=== PATIENT | male | born 1960 | race Caucasian/White ===

== ENCOUNTER 2023-07-21 10:22 | Emergency (ER) | payer BC ==
[2023-07-21] MEDS ORDERED: HYDROCODONE/APAP 5/325 MG TAB ONE (10:59)
[2023-07-21] MEDS ORDERED: DIAZEPAM 5 MG TABLET ONE (10:59)
--- NOTE | 2023-07-21 12:21 | RAD REPORT ---
EXAM DESCRIPTION: RAD - Hip Left 2 View - 07/21/2023 12:12 pm CLINICAL HISTORY: Left hip pain status post injury FINDINGS: No fracture or dislocation is seen. Mild osteoarthritis left hip 3 centimeter exostosis left iliac crest. Follow-up x-ray in 3 months recommended for re-evaluation
--- NOTE | 2023-07-21 12:33 | ER ---
Nurse's Notes [facility] Name: Sukumar Ross Age: 62 yrs Sex: Male : 1960 Arrival Date: 07/21/2023 Time: 10:22 Bed 12 Private MD: Diagnosis: Pain in left hip Presentation: 07/20 10:42 Chief complaint: Patient states: Low back pain for 2 days. No trauma or falls. ll1 Coronavirus screen: Client denies travel out of the [place] in the last 14 days. At this time, the client does not indicate any symptoms associated with coronavirus-19. Ebola Screen: Patient denies travel to an Ebola-affected area in the 21 days before illness onset. Initial Sepsis Screen: Does the patient meet any 2 criteria? No. Patient's initial sepsis screen is negative. Does the patient have a suspected source of infection? No. Patient's initial sepsis screen is negative. Risk Assessment: Do you want to hurt yourself or someone else? Patient reports no desire to harm self or others. Onset of symptoms was July 20, 2023. 10:42 Method Of Arrival: Wheelchair ll1 10:42 Acuity: SARAH 4 ll1 Triage Assessment: 12:43 General: Appears uncomfortable, Behavior is calm, cooperative, appropriate for age. ap3 Pain: Complains of pain in back. Historical: - Allergies: 10:42 PENICILLINS; ll1 10:42 Onion; ll1 - PMHx: 10:42 Hypertensive disorder; Diabetes mellitus; ll1 - PSHx: 10:42 B Hips; hernia repair; ll1 - Immunization history:: Adult Immunizations up to date. - Infectious Disease History:: Denies. - Social history:: Smoking status: Patient denies any tobacco usage or history of. Screenin:43 [facility] ED Fall Risk Assessment (Adult) History of falling in the last 3 months, ap3 including since admission No falls in past 3 months (0 pts) Confusion or Disorientation No (0 pts) Intoxicated or Sedated No (0 pts) Impaired Gait No (0 pts) Mobility Assist Device Used No (0 pt) Altered Elimination No (0 pt) Score/Fall Risk Level 0 - 2 = Low Risk Oriented to surroundings, Maintained a safe environment, Educated pt \T\ family on fall prevention, incl call for assistance when getting out of bed, Assessed \T\ reinforced patient's understanding of fall precautions, Provided non-skid footwear, Hourly rounding (assess needs \T\ fall precautionary measures) done, Used ambulatory aids as needed (educated on \T\ assisted with), Used gait belt as appropriate. Abuse screen: Denies threats or abuse. Nutritional screening: No deficits noted. Tuberculosis screening: No symptoms or risk factors identified. Assessment: 11:02 Reassessment: No changes from previously documented assessment. Patient and/or family ll1 updated on plan of care and expected duration. Pain level reassessed. Patient is alert, oriented x 3, equal unlabored respirations, skin warm/dry/pink. Vital Signs: 10:42 BP 115 / 92; Pulse 103; Resp 17; Temp 97.8; Pulse Ox 97% on R/A; Weight 92.99 kg; ll1 Height 5 ft. 10 in. ; Pain 7/10; 10:42 Body Mass Index 29.41 (92.99 kg, 177.8 cm) ll1 10:42 Pain Scale: Adult ll1 ED Course: 10:29 Patient arrived in ED. rg4 10:31 Edgard Sanford DO is Attending Physician. ms3 10:42 Arm band placed on. ll1 10:43 Triage completed. ll1 12:13 Hip Left 2 View XRAY In Process Unspecified. EDMS 12:43 No provider procedures requiring assistance completed. Patient did not have IV access ap3 during this emergency room visit. 12:44 Patient has correct armband on for positive identification. Placed in gown. Bed in low ap3 position. Call light in reach. Side rails up X 1. Provided Education on: discharge instructions. Administered Medications: 11:01 Drug: HYDROcodone-acetaminophen PO 5 mg-325 mg 1 tabs PO once {Note: pain 7/10 RASS 0.} ll1 Route: PO; 12:44 Follow up: Response: No adverse reaction; Pain is decreased ap3 11:01 Drug: Diazepam PO 5 mg PO once {Note: pain 7/10, RASS 0.} Route: PO; ll1 12:44 Follow up: Response: No adverse reaction; Pain is decreased ap3 Medication: 12:44 VIS not applicable for this client. ap3 Outcome: 12:33 Discharge ordered by . ms3 12:43 Discharged to home ambulatory, ap3 12:43 Condition: good 12:43 Discharge instructions given to patient, Instructed on discharge instructions, follow up and referral plans. medication usage, Demonstrated understanding of instructions, follow-up care, medications, Prescriptions given X 3, 12:44 Patient left the ED. ap3 Signatures: Dispatcher [employer] Farhana Caceres rg4 Echo Vance RN RN ap3 Cornelius Moeller RN RN ll1 Edgard Sanford DO DO ms3
--- NOTE | 2023-07-21 12:34 | EDPHYS ---
Physician Documentation [facility] Name: Sukumar Ross Age: 62 yrs Sex: Male : 1960 Arrival Date: 07/21/2023 Time: 10:22 Bed 12 Private MD: ED Physician Edgard Sanford HPI: 07/20 11:07 This 62 yrs old Male presents to ER via Wheelchair with complaints of Low Back Pain. ms3 11:07 62-year-old male with past medical history of hypertension, diabetes presents to the [facility] emergency department for left buttock pain that radiates down his left leg. Patient states his discomfort is 7/10. Patient states the pain is worse with walking. Patient notes he recently had an upper respiratory infection and he has been sleeping on the couch and in his recliner as do not get his girlfriend sick. Patient states symptoms began after the change in his sleeping arrangement. Historical: - Allergies: 10:42 PENICILLINS; ll1 10:42 Onion; ll1 - PMHx: 10:42 Hypertensive disorder; Diabetes mellitus; ll1 - PSHx: 10:42 B Hips; hernia repair; ll1 - Immunization history:: Adult Immunizations up to date. - Infectious Disease History:: Denies. - Social history:: Smoking status: Patient denies any tobacco usage or history of. ROS: 11:07 Constitutional: Negative for fever, and chills. Neck: Negative for injury, pain, and ms3 swelling, Cardiovascular: Negative for chest pain, and palpitations. Respiratory: Negative for shortness of breath, cough, wheezing, and pleuritic chest pain, Abdomen/GI: Negative for abdominal pain, nausea, vomiting, diarrhea, and constipation, 11:07 Skin: Negative for injury, rash, and discoloration, 11:07 MS/extremity: Positive for Left buttock pain, Exam: 11:07 Constitutional: This is a well developed, well nourished patient who is awake, alert, ms3 and in no acute distress. Neck: Trachea midline, no cervical lymphadenopathy. Supple, full range of motion without nuchal rigidity, or vertebral point tenderness. No Meningismus. Chest/axilla: Normal chest wall appearance and motion. Nontender with no deformity. Cardiovascular: Regular rate and rhythm with a normal S1 and S2. No gallops, murmurs, or rubs. Normal PMI, no JVD. No pulse deficits. Respiratory: Lungs have equal breath sounds bilaterally, clear to auscultation and percussion. No rales, rhonchi or wheezes noted. No increased work of breathing, no retractions or nasal flaring. Abdomen/GI: Soft, non-tender, with normal bowel sounds. No distension or tympany. No guarding or rebound. No evidence of tenderness throughout. Skin: Warm, dry with normal turgor. Normal color with no rashes, no lesions, and no evidence of cellulitis. MS/ Extremity: Pulses equal, no cyanosis. Neurovascular intact. Full, normal range of motion. Vital Signs: 10:42 BP 115 / 92; Pulse 103; Resp 17; Temp 97.8; Pulse Ox 97% on R/A; Weight 92.99 kg; ll1 Height 5 ft. 10 in. ; Pain 7/10; 10:42 Body Mass Index 29.41 (92.99 kg, 177.8 cm) ll1 10:42 Pain Scale: Adult ll1 MDM: 10:37 Patient medically screened. ms3 11:07 Differential diagnosis: strain, Osteoarthritis of left hip versus muscle spasm. ms3 12:35 Data reviewed: vital signs, nurses notes, and as a result, I will discharge patient. I ms3 considered the following discharge prescriptions or medication management in the emergency department Medications were administered in the Emergency Department. See MAR. Independent interpretation of the following test(s) in the Emergency Department X-Ray: My interpretation is Left hip x-ray images reviewed by me do not reveal fracture. Care significantly affected by the following chronic conditions: Diabetes, Hypertension. Counseling: I had a detailed discussion with the patient and/or guardian regarding the historical points, exam findings, and any diagnostic results supporting the discharge/admit diagnosis, radiology results, the need for outpatient follow up, to return to the emergency department if symptoms worsen or persist or if there are any questions or concerns that arise at home. Special discussion: I discussed with the patient/guardian in detail that at this point there is no indication for admission to the hospital. It is understood, however, that if the symptoms persist or worsen the patient needs to return immediately for re-evaluation. ED course: On reevaluation patient states pain mildly improved, patient is alert and orient x 4, no apparent distress, nontoxic-appearing. Patient to follow-up with his primary care physician in 2 to 3 days. Discussed x-ray findings of exostosis and necessity to have imaging repeated in 3 months. Patient understands and agrees with plan. All questions were answered. Return precautions discussed include worsening symptoms, or any other concerns. 07/20 10:38 Order name: Hip Left 2 View XRAY; Complete Time: 12:29 ms3 Administered Medications: 11:01 Drug: HYDROcodone-acetaminophen PO 5 mg-325 mg 1 tabs PO once {Note: pain 7/10 RASS 0.} ll1 Route: PO; 12:44 Follow up: Response: No adverse reaction; Pain is decreased ap3 11:01 Drug: Diazepam PO 5 mg PO once {Note: pain 7/10, RASS 0.} Route: PO; ll1 12:44 Follow up: Response: No adverse reaction; Pain is decreased ap3 Disposition Summary: 07/21/23 12:33 Discharge Ordered Notes: Location: Home ms3 Condition: Stable ms3 Diagnosis - Pain in left hip ms3 Followup: ms3 - With: Private Physician - When: 2 - 3 days - Reason: Recheck today's complaints Discharge Instructions: - Discharge Summary Sheet ms3 - Musculoskeletal Pain ms3 Forms: - Work release form ms3 - Medication Reconciliation Form ms3 - Antibiotic Education ms3 - Prescription Opioid Use ms3 - Patient Portal Instructions ms3 - Leadership Thank You Letter ms3 Prescriptions: - Ibuprofen 600 mg Oral Tablet - take 1 tablet ORAL route every 6 hours As needed take with food; 30 tablet; ms3 Refills: 0, Product Selection Permitted - Cyclobenzaprine 10 mg Oral Tablet - take 1 tablet ORAL route every 8 hours As needed; 30 tablet; Refills: 0, ms3 Product Selection Permitted - Cyclobenzaprine 5 mg Oral Tablet - take 1 tablet ORAL route 3 times per day As needed; 15 tablet; Refills: 0, ms3 Product Selection Permitted Signatures: Dispatcher [employer] Cornelius Messer RN RN ll1 Edgard Sanford DO DO ms3 Echo Vance RN ap3
[2023-07-21 12:52] VITALS: BP 115/92; TEMP 97.8; O2SAT 97
== END 2023-07-21 12:44 | disposition home or self-care (01) ==
LOC: ER 10:22
DX: M25.552 Pain in left hip (principal)
CPT/HCPCS: 99283

== ENCOUNTER 2024-11-15 10:23 | Day surgery (SDC) | payer BC ==
--- NOTE | 2024-11-07 15:14 | RAD REPORT ---
Procedure: Chest Pa And Lat (2 Views) HISTORY: Preop for genitourinary surgery COMPARISON: 2010 FINDINGS: The lungs appear clear of acute infiltrate. No significant pleural effusion noted. The heart is normal size. IMPRESSION: No acute abnormality is displayed.
[2024-11-07 15:31] LABS: Absolute Lymphocytes (CBC) 1.4 K/uL (0.7-4.9); Hematocrit 41.6 % (39.6-49.0); Hemoglobin 14.3 g/dL (13.6-17.9); MCH 30.0 pg (27.0-35.0); MCHC 34.4 g/dL (32.0-36.0); MCV 87.4 fL (80-100); MPV 8.5 fL (7.6-11.3); Nucleated RBC Absolute Count 0.0 (0-0); Nucleated Red Blood Cells % 0.2 % (0-0); RBC Red Blood Cell Count 4.76 M/uL (4.33-5.43); White Blood Count 6.80 thou/uL (4.3-10.9)
[2024-11-07 15:34] LABS: Urine Culture Reflex Order REFLEXED; Urine Microscopic Reflex YN NO UMIC
[2024-11-07 15:40] LABS: PT Prothrombin Time 10.7 SECONDS (10-13.0); Protime INR 0.95
[2024-11-07 15:48] LABS: Anion Gap 8.5 mEq/L (5.0-15.0); BUN Blood Urea Nitrogen 21.0 mg/dL (7-18); Glucose Level 113.0 mg/dL (74-106); Potassium 3.5 mEq/L (3.5-5.1)
[2024-11-15] MEDS ORDERED: NA CHLORIDE 0.9% 1,000 ML ONE (10:42)
[2024-11-15] MEDS ORDERED: LIDOCAINE 1% MPF 5 ML VIAL ONE (10:48)
[2024-11-15] MEDS ORDERED: MIDAZOLAM HCL 2 MG/2 ML INJ ONE ×2 (10:48→11:40)
[2024-11-15] MEDS ORDERED: ONDANSETRON 4 MG/2 ML VIAL ONE (10:48)
[2024-11-15] MEDS ORDERED: FENTANYL CITR 100 MCG/2 ML ONE (10:48)
[2024-11-15] MEDS: GENTAMICIN 80 MG/100 ML BAG 80 MG/100 ML BAG IV ONE (12:00)
[2024-11-15] MEDS: CLINDAMYCIN 600MG/D5W 50 ML IV ONE (12:09)
[2024-11-15] MEDS: HYDROMORPHONE HCL 1 MG/ML INJ ONE (13:16)
[2024-11-15] MEDS ORDERED: CODEINE 30MG/APAP 300MG TAB PO PRN (13:30)
[2024-11-15] MEDS ORDERED: PHENAZOPYRIDINE 100MG TAB PO ONE (13:30)
[2024-11-15] MEDS ORDERED: OXYBUTYNIN ER 5 MG TAB PO ONE (13:30)
--- NOTE | 2024-11-15 13:43 | P.OP ---
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 He underwent evaluation revealing significant elevation of the bladder neck contributing to obstruction and primary bladder neck dysfunction without significant lateral lobar hypertrophy. He was counseled on the recommendation for incision of the prostate/resection of the high bladder neck to improve his obstructive LUTS. He did have pre-existing OAB LUTS with urge incontinence, and I cautioned him that these symptoms would not immediately resolve following the procedure and may require separate medical management. Procedure note: The patient was consented in the preoperative holding area before being tra nsferred to the operative suite where general anesthesia was induced. He was given clindamycin plus gentamicin IV antimicrobial prophylaxis given his allergy to penicillins that included anaphylaxis. Pneumoboots were provided for DVT prophylaxis. He was placed in the lithotomy position, padded and secured to the table appropriately. His genitalia was prepped with Hibiclens and he was draped in standard fashion. Urethral sounds were used to dilate the meatus and fossa navicularis from 20 Spanish to 30 Spanish with relative ease. Then, using a visual obturator and the 26 Spanish bipolar resectoscope sheath, I was able to navigate the scope via his urethra into his bladder beyond the high bladder neck with relative ease. I decompressed his bladder with fluid and urine and surveyed it. No concerning papillary mucosal lesions, foreign bodies, or stones were noted. I thus utilized the bipolar thick loop to began resecting the high bladder neck/median bar until it was down to the level of the trigone at the bladder neck. I then continue that resection to create a smooth trough down to the verumontanum, which was spared. Additional resection posterior laterally was performed as necessary in order to ensure relief of all obstruction optically. I then removed the prostate chips and decompressed his bladder, and with his bladder nearly empty, I surveyed the channel created, and resected additionally where some intruding prostate tissue was noted. Again, I removed those prostate chips and ensured absolute hemostasis with the bladder decompressed completely using fulguration. Once I was satisfied with the channel created, there was no oozing at all, and all prostate chips had been removed, I retrograde filled his bladder as I removed the scope, and then I replaced a new 22 Spanish three-way Soto catheter into his bladder with ease. 30 cc of sterile water was placed in the balloon and the catheter was connected to a floor bag. CBI was initiated and the drainage was completely clear with slow drip CBI. The catheter was placed to moderate traction, and he was taken out of the lithotomy position. He was then awakened from general anesthesia before being transferred to a stretcher. He was then transferred to the recovery room in good condition. Complications: None Discharge disposition: Follow-up should be established in about 3 months, but he may wish to be seen sooner if he has ongoing significant issues with OAB LUTS and urge incontinence so that we can discuss separate medical management of that.
[2024-11-15] MEDS: NACL 0.9% IRR SOLN 2,000 ML IRR ONE (14:55)
[2024-11-15 15:08] VITALS: O2SAT 96
[2024-11-15 15:09] VITALS: BP 105/65; TEMP 97
== END 2024-11-15 15:00 | disposition home or self-care (01) ==
LOC: OR 10:23
PROVIDERS: ATTEND Urology
PROC: 0VT08ZZ Resection of Prostate, Via Natural or Artificial Opening Endoscopic (ICD-10-PCS; principal; 2024-11-15 12:30)
DX: N40.1 Benign prostatic hyperplasia with lower urinary tract symptoms (principal); N13.8 Other obstructive and reflux uropathy; N39.41 Urge incontinence
CPT/HCPCS: 93005; 87088; 85025; 87086; 80048; 36415; 85610; 82947 ×2; 88305; 81003; 71046; 52601; J2704; J2003; J2250; J3010; J1171; J2405; J7030; J1580